=== PATIENT | female | born 1980 | race Caucasian/White ===

== ENCOUNTER 2018-02-21 11:56 | Inpatient (IN) | payer MEDICAID ==
[2018-02-21 13:03] LABS: ADD UMIC YES; UR ASCORBIC ACID NEGATIVE (NEGATIVE); UR BACTERIA FEW /HPF (NONE SEEN); UR BILIRUBIN (Dip) NEGATIVE (NEGATIVE); UR BLOOD (Dip) NEGATIVE (NEGATIVE); UR CLARITY SLIGHTLY CLOUDY (CLEAR); UR COLOR YELLOW (YELLOW); UR GLUCOSE (Dip) NEGATIVE (NEGATIVE); UR KETONES (Dip) NEGATIVE (NEGATIVE); UR LEUKOCYTE ESTERASE (Dip) TRACE Leu/ul (NEGATIVE); UR NITRITE (Dip) NEGATIVE (NEGATIVE); UR RBC 1 /HPF (0-5); UR SPECIFIC GRAVITY (Dip) 1.014 (1.003-1.030); UR SQUAMOUS EPITHELIAL CELL FEW /HPF (FEW); UR TOTAL PROTEIN (Dip) NEGATIVE (NEGATIVE); UR UROBILINOGEN (Dip) 1+ mg/dL (NEGATIVE); UR WBC 10 /HPF (0-5)
[2018-02-21 13:33] LABS: ADD MAN DIFF? NO
[2018-02-21 13:34] LABS: WHITE BLOOD COUNT 10.3 10^3/ul (4.8-10.8)
[2018-02-21 13:34] LABS: BASOPHILS % 0.4 % (0.0-2.0); EOSINOPHILS # 0.2 10^3/ul (0.0-0.5); HEMATOCRIT 32.5 % (37.0-47.0); HEMOGLOBIN 10.7 g/dl (12.0-16.0); LYMPHOCYTES # 1.2 10^3/ul (0.8-2.9); LYMPHOCYTES % 11.5 % (15.0-51.0); MEAN CORPUSCULAR HEMOGLOBIN 28.8 pg (29.0-33.0); MEAN CORPUSCULAR HGB CONC 32.9 g/dl (32.0-37.0); MEAN CORPUSCULAR VOLUME 87.6 fl (82.0-101.0); MEAN PLATELET VOLUME 10.6 fl (7.4-10.4); MONOCYTE # 0.8 10^3/ul (0.3-0.9); MONOCYTES % 7.6 % (0.0-11.0); PLATELET COUNT 197 10^3/UL (140-415); RED BLOOD COUNT 3.71 10^6/ul (4.20-5.40); RED CELL DISTRIBUTION WIDTH 14.2 % (11.5-14.5)
[2018-02-21] MEDS: LACTATED RINGER'S 1,000 ML IV ×2 (16:11→21:07)
[2018-02-21] MEDS: CEFAZOLIN 2 GM/50 ML (PMX) 50 ML IV ×2 (16:12→22:04)
[2018-02-21 16:58] LABS: AMPHETAMINE/METHAMPHETAMINE Negative (NEGATIVE); BARBITURATES Negative (NEGATIVE); BENZODIAZEPINES Negative (NEGATIVE); CANNABINOIDS Negative (NEGATIVE); COCAINE Negative (NEGATIVE); OPIATES Negative (NEGATIVE)
[2018-02-21] MEDS: ACETAMINOPHEN 500 MG TAB PO (21:06)
[2018-02-22] MEDS: LACTATED RINGER'S 1,000 ML IV ×3 (05:16→23:02)
[2018-02-22] MEDS: CEFAZOLIN 2 GM/50 ML (PMX) 50 ML IV ×3 (05:44→21:52)
[2018-02-22] MEDS: ACETAMINOPHEN 325 MG TAB PO (14:06)
[2018-02-23] MEDS: CEFAZOLIN 2 GM/50 ML (PMX) 50 ML IV (05:43)
[2018-02-23] MEDS: LACTATED RINGER'S 1,000 ML IV ×2 (06:35→20:07)
[2018-02-23 13:32] LABS: ADD UMIC YES; UR ASCORBIC ACID NEGATIVE (NEGATIVE); UR BILIRUBIN (Dip) NEGATIVE (NEGATIVE); UR BLOOD (Dip) 1+ mg/dL (NEGATIVE); UR CLARITY CLEAR (CLEAR); UR COLOR STRAW (YELLOW); UR GLUCOSE (Dip) NEGATIVE (NEGATIVE); UR KETONES (Dip) NEGATIVE (NEGATIVE); UR LEUKOCYTE ESTERASE (Dip) NEGATIVE Leu/ul (NEGATIVE); UR NITRITE (Dip) NEGATIVE (NEGATIVE); UR RBC 0 /HPF (0-5); UR SPECIFIC GRAVITY (Dip) 1.005 (1.003-1.030); UR TOTAL PROTEIN (Dip) NEGATIVE (NEGATIVE); UR UROBILINOGEN (Dip) NEGATIVE (NEGATIVE); UR WBC 1 /HPF (0-5)
[2018-02-23] MEDS: CEFEPIME 1GM/50 ML (PMX) 50 ML IVPB (20:55)
[2018-02-24] MEDS: LACTATED RINGER'S 1,000 ML IV ×4 (04:01→22:47)
[2018-02-24] MEDS: CEFEPIME 1GM/50 ML (PMX) 50 ML IVPB ×2 (09:39→20:59)
[2018-02-25] MEDS: LACTATED RINGER'S 1,000 ML IV ×3 (04:52→22:27)
[2018-02-25] MEDS: PRENATAL VITAMIN PO (08:41)
[2018-02-25] MEDS: CEFEPIME 1GM/50 ML (PMX) 50 ML IVPB ×2 (08:42→20:47)
[2018-02-25] MEDS: ACETAMINOPHEN 325 MG TAB PO (17:01)
[2018-02-26] MEDS: LACTATED RINGER'S 1,000 ML IV ×3 (05:58→23:08)
[2018-02-26] MEDS: PRENATAL VITAMIN PO (08:27)
[2018-02-26] MEDS: CEFEPIME 1GM/50 ML (PMX) 50 ML IVPB ×2 (08:27→20:56)
[2018-02-26] MEDS: ACETAMINOPHEN 325 MG TAB PO (14:05)
[2018-02-26] MEDS: MICONAZOLE 2% 45 GM VAG CR VAG (23:50)
[2018-02-27] MEDS: LACTATED RINGER'S 1,000 ML IV ×2 (07:08→15:28)
[2018-02-27] MEDS: PRENATAL VITAMIN PO (09:17)
[2018-02-27] MEDS: CEFEPIME 1GM/50 ML (PMX) 50 ML IVPB ×2 (09:18→21:10)
[2018-02-27] MEDS: MICONAZOLE 2% 45 GM VAG CR VAG (21:11)
[2018-02-28] MEDS: LACTATED RINGER'S 1,000 ML IV ×3 (00:13→16:28)
[2018-02-28] MEDS: PRENATAL VITAMIN PO (08:52)
[2018-02-28] MEDS: CEFEPIME 1GM/50 ML (PMX) 50 ML IVPB ×2 (08:52→22:14)
[2018-02-28 09:09] LABS: ADD MAN DIFF? NO
[2018-02-28 09:18] LABS: WHITE BLOOD COUNT 12.4 10^3/ul (4.8-10.8)
[2018-02-28 09:18] LABS: BASOPHIL # 0.1 10^3/ul (0.0-0.1); BASOPHILS % 0.4 % (0.0-2.0); EOSINOPHILS # 0.4 10^3/ul (0.0-0.5); HEMATOCRIT 29.9 % (37.0-47.0); HEMOGLOBIN 9.8 g/dl (12.0-16.0); LYMPHOCYTES # 2.8 10^3/ul (0.8-2.9); MEAN CORPUSCULAR HEMOGLOBIN 28.9 pg (29.0-33.0); MEAN CORPUSCULAR HGB CONC 32.8 g/dl (32.0-37.0); MEAN CORPUSCULAR VOLUME 88.2 fl (82.0-101.0); MEAN PLATELET VOLUME 10.4 fl (7.4-10.4); MONOCYTE # 0.8 10^3/ul (0.3-0.9); MONOCYTES % 6.3 % (0.0-11.0); NEUTROPHIL # 8.2 10^3/ul (1.6-7.5); NEUTROPHILS % 66.4 % (39.0-77.0); PLATELET COUNT 231 10^3/UL (140-415); RED BLOOD COUNT 3.39 10^6/ul (4.20-5.40); RED CELL DISTRIBUTION WIDTH 13.9 % (11.5-14.5)
[2018-02-28] MEDS: MICONAZOLE 2% 45 GM VAG CR VAG (21:00)
[2018-03-01] MEDS: LACTATED RINGER'S 1,000 ML IV ×4 (02:13→22:47)
[2018-03-01 07:01] LABS: ADD UMIC YES; UR ASCORBIC ACID NEGATIVE (NEGATIVE); UR BILIRUBIN (Dip) NEGATIVE (NEGATIVE); UR BLOOD (Dip) NEGATIVE (NEGATIVE); UR CLARITY SLIGHTLY CLOUDY (CLEAR); UR COLOR YELLOW (YELLOW); UR GLUCOSE (Dip) NEGATIVE (NEGATIVE); UR KETONES (Dip) NEGATIVE (NEGATIVE); UR LEUKOCYTE ESTERASE (Dip) 2+ Leu/ul (NEGATIVE); UR NITRITE (Dip) NEGATIVE (NEGATIVE); UR RBC 2 /HPF (0-5); UR SPECIFIC GRAVITY (Dip) 1.015 (1.003-1.030); UR SQUAMOUS EPITHELIAL CELL MODERATE /HPF (FEW); UR TOTAL PROTEIN (Dip) NEGATIVE (NEGATIVE); UR UROBILINOGEN (Dip) NEGATIVE (NEGATIVE); UR WBC 8 /HPF (0-5)
[2018-03-01] MEDS: CEFEPIME 1GM/50 ML (PMX) 50 ML IVPB ×2 (08:59→20:54)
[2018-03-01] MEDS: PRENATAL VITAMIN PO (10:54)
[2018-03-01] MEDS: MICONAZOLE 2% 45 GM VAG CR VAG (21:00)
[2018-03-02] MEDS: LACTATED RINGER'S 1,000 ML IV (04:34)
[2018-03-02 07:05] LABS: ADD UMIC NO; UR ASCORBIC ACID NEGATIVE (NEGATIVE); UR BILIRUBIN (Dip) NEGATIVE (NEGATIVE); UR BLOOD (Dip) NEGATIVE (NEGATIVE); UR CLARITY CLEAR (CLEAR); UR COLOR STRAW (YELLOW); UR GLUCOSE (Dip) 1+ mg/dL (NEGATIVE); UR KETONES (Dip) NEGATIVE (NEGATIVE); UR LEUKOCYTE ESTERASE (Dip) NEGATIVE Leu/ul (NEGATIVE); UR NITRITE (Dip) NEGATIVE (NEGATIVE); UR SPECIFIC GRAVITY (Dip) 1.005 (1.003-1.030); UR TOTAL PROTEIN (Dip) NEGATIVE (NEGATIVE); UR UROBILINOGEN (Dip) NEGATIVE (NEGATIVE)
[2018-03-02] MEDS: PRENATAL VITAMIN PO (09:02)
[2018-03-02] MEDS: CEFEPIME 1GM/50 ML (PMX) 50 ML IVPB (09:02)
[2018-03-02] MEDS: FERROUS SULFATE (EC) 325 MG TAB PO (09:02)
[2018-03-02] MEDS ORDERED: CEFAZOLIN 2 GM/50 ML (PMX) 50 ML IVPB (16:00)
[2018-03-02] MEDS ORDERED: OXYTOCIN 30 UNITS/LR 500 ML IV ×2 (16:01→16:30)
[2018-03-02] MEDS ORDERED: ZOLPIDEM 5 MG TAB PO (16:30)
[2018-03-02] MEDS ORDERED: WITCH HAZEL/GLYCERIN PAD PR (16:30)
[2018-03-02] MEDS ORDERED: MISOPROSTOL 200 MCG TAB PR (16:30)
[2018-03-02] MEDS ORDERED: ONDANSETRON 4 MG INJ IV (16:30)
[2018-03-02] MEDS ORDERED: METHYLERGONOVINE 0.2 MG INJ IM (16:30)
[2018-03-02] MEDS ORDERED: DIPHENHYDRAMINE 25 MG CAP PO (16:30)
[2018-03-02] MEDS ORDERED: LANOLIN 7 GM TUBE TOP (16:30)
[2018-03-02] MEDS ORDERED: NACL 0.9% 3 ML SYG IV (16:30)
[2018-03-02] MEDS ORDERED: CARBOPROST 250 MCG INJ IM (16:30)
[2018-03-02] MEDS ORDERED: IBUPROFEN 600 MG TAB PO (18:00)
[2018-03-02] MEDS ORDERED: SENNA/DOCUSATE NA (8.6MG/50MG) TAB PO (21:00)
[2018-03-03] MEDS ORDERED: FERROUS SULFATE (EC) 325 MG TAB PO (09:00)
[2018-03-04] MEDS ORDERED: VARICELLA VACCINE LIVE/PF 1,350 UNIT/0.5 ML ML SC* (09:00)
[2018-03-04] MEDS ORDERED: DIPHTH/TET/ACEL PERTUSS (ADULT) 0.5 ML VIAL IM* (09:00)
[2018-03-04] MEDS ORDERED: MEASLES,MUMPS,RUBELLA VACCINE INJ SC* (09:00)
== END 2018-03-02 16:05 | disposition home or self-care (01) | DRG 781 ==
LOC: OBT 11:56 → L-D 11:56 → OBT 14:45 → L-D 14:45 → PP1 19:50
DX: O23.02 Infections of kidney in pregnancy, second trimester (principal); B96.20 Unspecified Escherichia coli [E. coli] as the cause of diseases classified elsewhere; O09.522 Supervision of elderly multigravida, second trimester; Z3A.27 27 weeks gestation of pregnancy
CPT/HCPCS: 76815; 76817; 76818; 80307; 81001; 81003; 82731; 85025; 87086

== ENCOUNTER 2018-04-08 19:49 | Outpatient (CLI) | payer MEDICAID ==
[2018-04-08 22:22] LABS: ADD UMIC YES; UR ASCORBIC ACID NEGATIVE (NEGATIVE); UR BILIRUBIN (Dip) NEGATIVE (NEGATIVE); UR BLOOD (Dip) NEGATIVE (NEGATIVE); UR CALCIUM OXALATE CRYSTAL MANY /HPF (NONE SEEN); UR CLARITY SLIGHTLY CLOUDY (CLEAR); UR COLOR YELLOW (YELLOW); UR GLUCOSE (Dip) NEGATIVE (NEGATIVE); UR KETONES (Dip) NEGATIVE (NEGATIVE); UR LEUKOCYTE ESTERASE (Dip) TRACE Leu/ul (NEGATIVE); UR MUCUS FEW /HPF (NONE SEEN); UR NITRITE (Dip) NEGATIVE (NEGATIVE); UR RBC 3 /HPF (0-5); UR SPECIFIC GRAVITY (Dip) 1.025 (1.003-1.030); UR SQUAMOUS EPITHELIAL CELL FEW /HPF (FEW); UR TOTAL PROTEIN (Dip) NEGATIVE (NEGATIVE); UR UROBILINOGEN (Dip) NEGATIVE (NEGATIVE); UR WBC 4 /HPF (0-5)
== END 2018-04-08 20:45 | disposition home or self-care (01) ==
LOC: OBT 19:49 → L-D 19:50 → OBT 20:45
DX: O26.893 Other specified pregnancy related conditions, third trimester (principal); R10.2 Pelvic and perineal pain; M54.5 Low back pain; O09.523 Supervision of elderly multigravida, third trimester; Z3A.34 34 weeks gestation of pregnancy
CPT/HCPCS: 76815; 76818; 81001

== ENCOUNTER 2018-04-29 22:44 | Inpatient (IN) | payer MEDICAID ==
[2018-04-29 23:43] LABS: ADD UMIC NO; UR ASCORBIC ACID NEGATIVE (NEGATIVE); UR BILIRUBIN (Dip) NEGATIVE (NEGATIVE); UR BLOOD (Dip) NEGATIVE (NEGATIVE); UR CALCIUM OXALATE CRYSTAL MODERATE /HPF (NONE SEEN); UR CLARITY SLIGHTLY CLOUDY (CLEAR); UR COLOR YELLOW (YELLOW); UR GLUCOSE (Dip) NEGATIVE (NEGATIVE); UR KETONES (Dip) NEGATIVE (NEGATIVE); UR LEUKOCYTE ESTERASE (Dip) NEGATIVE Leu/ul (NEGATIVE); UR MUCUS FEW /HPF (NONE SEEN); UR NITRITE (Dip) NEGATIVE (NEGATIVE); UR RBC 1 /HPF (0-5); UR SPECIFIC GRAVITY (Dip) 1.021 (1.003-1.030); UR SQUAMOUS EPITHELIAL CELL FEW /HPF (FEW); UR TOTAL PROTEIN (Dip) NEGATIVE (NEGATIVE); UR UROBILINOGEN (Dip) 1+ mg/dL (NEGATIVE); UR WBC 1 /HPF (0-5)
[2018-04-30] MEDS ORDERED: MISOPROSTOL 200 MCG TAB PR ×2 (00:30→21:30)
[2018-04-30] MEDS ORDERED: LIDOCAINE 1% (MPF) 30 ML INJ INJ (00:30)
[2018-04-30] MEDS ORDERED: CARBOPROST 250 MCG INJ IM ×2 (00:30→21:30)
[2018-04-30 00:59] LABS: ADD MAN DIFF? NO
[2018-04-30] MEDS ORDERED: PENICILLIN G K 2,500,000 UNITS in DEXTROSE 5% 50 ML IVPB (01:00)
[2018-04-30] MEDS ORDERED: OXYTOCIN 30 UNITS/LR 500 ML IV (01:00)
[2018-04-30 01:03] LABS: BASOPHIL # 0.1 10^3/ul (0.0-0.1); BASOPHILS % 0.4 % (0.0-2.0); EOSINOPHILS # 0.3 10^3/ul (0.0-0.5); EOSINOPHILS % 2.3 % (0.0-7.0); HEMATOCRIT 32.5 % (37.0-47.0); HEMOGLOBIN 11.1 g/dl (12.0-16.0); LYMPHOCYTES # 2.6 10^3/ul (0.8-2.9); LYMPHOCYTES % 21.5 % (15.0-51.0); MEAN CORPUSCULAR HEMOGLOBIN 29.1 pg (29.0-33.0); MEAN CORPUSCULAR HGB CONC 34.2 g/dl (32.0-37.0); MEAN CORPUSCULAR VOLUME 85.1 fl (82.0-101.0); MEAN PLATELET VOLUME 11.6 fl (7.4-10.4); MONOCYTE # 0.8 10^3/ul (0.3-0.9); MONOCYTES % 6.4 % (0.0-11.0); NEUTROPHIL # 8.3 10^3/ul (1.6-7.5); PLATELET COUNT 186 10^3/UL (140-415); RED BLOOD COUNT 3.82 10^6/ul (4.20-5.40); RED CELL DISTRIBUTION WIDTH 13.6 % (11.5-14.5)
[2018-04-30 01:03] LABS: WHITE BLOOD COUNT 12.1 10^3/ul (4.8-10.8)
[2018-04-30 01:23] LABS: INR 0.95; PROTIME 12.8 Sec (11.9-14.9)
[2018-04-30 01:24] LABS: PARTIAL THROMBOPLASTIN TIME 24.4 Sec (25.0-35.0)
[2018-04-30 01:31] LABS: AMPHETAMINE/METHAMPHETAMINE Negative (NEGATIVE); BARBITURATES Negative (NEGATIVE); BENZODIAZEPINES Negative (NEGATIVE); CANNABINOIDS Negative (NEGATIVE); COCAINE Negative (NEGATIVE); OPIATES Negative (NEGATIVE)
[2018-04-30 01:32] LABS: TROPONIN-I < 0.012 ng/ml (0.000-0.120)
[2018-04-30] MEDS: LACTATED RINGER'S 1,000 ML IV* ×4 (01:34→22:45)
[2018-04-30] MEDS: PENICILLIN G K 5,000,000 UNITS in DEXTROSE 5% 100 ML IVPB (01:50)
[2018-04-30] MEDS: PENICILLIN G BENZ 2.4 MIL UNIT SYG IM (02:19)
[2018-04-30] MEDS ORDERED: MEPERIDINE 50 MG INJ IV (02:30)
[2018-04-30] MEDS ORDERED: FENTAnyl 2MCG/ML-ROPIV 0.2% 100 ML (03:53)
[2018-04-30] MEDS ORDERED: NALOXONE (0.4 MG/ML) INJ IV (04:30)
[2018-04-30] MEDS ORDERED: ONDANSETRON 4 MG INJ IV ×2 (04:30→21:30)
[2018-04-30] MEDS ORDERED: DIPHENHYDRAMINE 50 MG INJ IV ×2 (04:30→21:30)
[2018-04-30] MEDS: PENICILLIN G K 2,500,000 UNITS in DEXTROSE 5% 50 ML IVPB ×4 (05:56→18:28)
[2018-04-30] MEDS: OXYTOCIN 30 UNITS/LR 500 ML IV ×3 (07:58→21:21)
[2018-04-30] MEDS: FENTAnyl 2MCG/ML-ROPIV 0.2% 100 ML BAG EPI (13:56)
[2018-04-30] MEDS: METHYLERGONOVINE 0.2 MG INJ IM (20:55)
[2018-04-30] MEDS ORDERED: DEXTROSE 5%-LR 1,000 ML IV (21:24)
[2018-04-30] MEDS ORDERED: LANOLIN 7 GM TUBE TOP (21:30)
[2018-04-30] MEDS ORDERED: METHYLERGONOVINE 0.2 MG INJ IM (21:30)
[2018-04-30] MEDS ORDERED: DIBUCAINE 1% 30 GM OINT PR (21:30)
[2018-04-30] MEDS ORDERED: WITCH HAZEL/GLYCERIN PAD PR (21:30)
[2018-04-30] MEDS ORDERED: BENZOCAINE 20% 56 ML SPRAY TOP (21:30)
[2018-04-30] MEDS ORDERED: ZOLPIDEM 5 MG TAB PO (21:30)
[2018-04-30] MEDS ORDERED: SENNA/DOCUSATE NA (8.6MG/50MG) TAB PO (21:30)
[2018-04-30] MEDS: ACETAMINOPHEN 325 MG TAB PO (21:53)
[2018-04-30 23:06] LABS: RAPID PLASMA REAGIN REACTIVE (NR)
[2018-04-30] MEDS: IBUPROFEN 600 MG TAB PO (23:52)
[2018-05-01] MEDS: OXYTOCIN 30 UNITS/LR 500 ML IV (01:59)
[2018-05-01] MEDS: LACTATED RINGER'S 1,000 ML IV* ×3 (05:24→22:31)
[2018-05-01] MEDS: IBUPROFEN 600 MG TAB PO ×3 (05:59→18:18)
[2018-05-01 08:13] LABS: ADD MAN DIFF? NO
[2018-05-01 08:16] LABS: WHITE BLOOD COUNT 10.8 10^3/ul (4.8-10.8)
[2018-05-01 08:16] LABS: BASOPHIL # 0.1 10^3/ul (0.0-0.1); BASOPHILS % 0.6 % (0.0-2.0); EOSINOPHILS # 0.3 10^3/ul (0.0-0.5); HEMATOCRIT 26.4 % (37.0-47.0); LYMPHOCYTES # 1.8 10^3/ul (0.8-2.9); LYMPHOCYTES % 16.7 % (15.0-51.0); MEAN CORPUSCULAR HEMOGLOBIN 28.9 pg (29.0-33.0); MEAN CORPUSCULAR HGB CONC 34.1 g/dl (32.0-37.0); MEAN CORPUSCULAR VOLUME 84.9 fl (82.0-101.0); MEAN PLATELET VOLUME 11.7 fl (7.4-10.4); MONOCYTE # 0.9 10^3/ul (0.3-0.9); MONOCYTES % 7.8 % (0.0-11.0); NEUTROPHIL # 7.8 10^3/ul (1.6-7.5); NEUTROPHILS % 71.6 % (39.0-77.0); PLATELET COUNT 146 10^3/UL (140-415); RED BLOOD COUNT 3.11 10^6/ul (4.20-5.40); RED CELL DISTRIBUTION WIDTH 13.7 % (11.5-14.5)
[2018-05-01 15:36] LABS: RAPID PLASMA REAGIN REACTIVE (NR)
[2018-05-02] MEDS: IBUPROFEN 600 MG TAB PO ×3 (00:39→12:13)
[2018-05-02] MEDS: LACTATED RINGER'S 1,000 ML IV* ×2 (05:24→13:24)
[2018-05-02] MEDS: MEASLES,MUMPS,RUBELLA VACCINE INJ SC* (09:00)
[2018-05-02] MEDS: DIPHTH/TET/ACEL PERTUSS (ADULT) 0.5 ML VIAL IM* (15:56)
[2018-05-04 13:31] LABS: FLUORESCENT TREPONEMAL AB REACTIVE (NON-REACTIVE)
== END 2018-05-02 16:45 | disposition home or self-care (01) | DRG 774 ==
LOC: OBT 22:44 → L-D 04-30 00:01 → PP1 04-30 22:35 → OBT 23:56 → L-D 23:57
PROC: 10E0XZZ Delivery of Products of Conception, External Approach (ICD-10-PCS; principal; 2018-04-30)
DX: O69.2XX0 Labor and delivery complicated by other cord entanglement, with compression, not applicable or unspecified (principal); O98.12 Syphilis complicating childbirth; O99.824 Streptococcus B carrier state complicating childbirth; O99.214 Obesity complicating childbirth; E66.01 Morbid (severe) obesity due to excess calories; Z68.39 Body mass index [BMI] 39.0-39.9, adult; Z87.440 Personal history of urinary (tract) infections; Z3A.37 37 weeks gestation of pregnancy; Z37.0 Single live birth
CPT/HCPCS: 76815; 80307; 81001; 81003; 84484; 85025; 85610; 85730; 86592; 86850; 86900; 86901; 90715; 99464

== ENCOUNTER 2018-12-23 22:50 | Emergency (ER) | payer MEDICAID ==
[2018-12-24] MEDS: AZITHROMYCIN 500 MG TAB PO (02:32)
[2018-12-24] MEDS: PENICILLIN G BENZ 2.4 MIL UNIT SYG IM (02:33)
[2018-12-24] MEDS: CEFTRIAXONE 250 MG INJ IM (02:33)
[2018-12-24] MEDS: LIDOCAINE 1% (MPF) 5 ML VIAL INFIL (02:34)
== END 2018-12-24 03:30 | disposition home or self-care (01) ==
LOC: FTE 22:50
DX: O98.112 Syphilis complicating pregnancy, second trimester (principal); Z3A.22 22 weeks gestation of pregnancy
CPT/HCPCS: 76805; 96372; 99285-25